=== PATIENT | female | born 1950 | race Caucasian/White ===

== ENCOUNTER 2021-04-26 14:00 | Emergency (ER) | payer MEDICARE, SELFPAY ==
--- NOTE | ~2021-04-26 | XR_ITS ---
EXAMINATION: XR foot RT min 3V DATE: 04/26/2021 15:00 INDICATION: Pain at the distal right metatarsals post fall TECHNIQUE: Dorsoplantar, two oblique and lateral views of the right foot were obtained. COMPARISON: None. FINDINGS: Minimally displaced fractures at the necks of the right second-fifth metatarsals with mild plantar/la teral impaction and angulation. No other fractures identified. Alignment is otherwise normal. 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 Diffuse soft tissue swelling about the fore and midfoot. IMPRESSION: 1. Nondisplaced mildly angulated extra articular fractures at the necks of the right second-fifth met atarsals. Reviewed, dictated and finalized at location B. S MANAGER IMPRESSION: 1. Nondisplaced mildly angulated extra articular fractures at the necks of the right second-fifth metatarsals.
[2021-04-26 14:42] VITALS: BP 153/54; PULSE 80; RESP 16; TEMP 37.1; O2SAT 97
[2021-04-26 14:47] VITALS: BP 153/54; PULSE 80; RESP 16; TEMP 37.1; O2SAT 97
--- NOTE | 2021-04-26 16:08 | ED.LOWEXIN ---
HPI - Extremity Injury (Lower) General Chief Complaint: Extremity Injury, Lower Stated Complaint: right foot pain Time Seen by Provider: 04/26/21 16:04 Source: patient, RN notes reviewed and old records reviewed Mode of arrival: ambulatory Limitations: no limitations History of Present Illness HPI Narrative: 71-year-old female who presents to [facility] with complaints of injury to her right foot 1 week ago where she slipped at home in her living room on a wet floor. Patient has acute swelling with some mild redness to dorsal distal aspect of her right foot, patient states that her discomfort is across the top of her distal right foot. Patient reports that she has been up walking on her foot with some increase discomfort with weight bearing. Patient states that she has been taking Tylenol for her discomfort. MD complaint: foot injury Onset (ago): week(s) (1) Related Data Home Medications Medication Instructions Recorded Confirmed Htn Med. 04/26/21 Water Pill 04/26/21 atorvastatin 04/26/21 Allergies Allergy/AdvReac Type Severity Reaction Status Date / Time No Known Allergies Allergy Verified 04/26/21 14:47 Review of Systems Review of Systems: CONSTITUTIONAL: Denies fever, chills, or sweats. EYES: Denies visual changes, redness, or discharge. ENT: Denies rhinorrhea, congestion, sore throat, or otalgia. CARDIOVASCULAR: Denies chest pain, palpitations, or edema. RESPIRATORY: Denies cough or dyspnea. GASTROINTESTINAL: Denies abdominal pain, nausea, vomiting, or diarrhea. GENITOURINARY: Denies dysuria or hematuria. SKIN: Denies rash or itching. MUSCULOSKELETAL: Denies back pain, positive for right distal foot joint pain, or myalgia. NEUROLOGIC: Denies headache, numbness, or weakness. PSYCHIATRIC: Denies anxiety or depression. All systems reviewed & are unremarkable except as noted in HPI and below PMFSH Past Medical History Medical History (Updated 04/26/21 @ 16:21 by Agnes Stratton NP) Elevated serum cholesterol Hypertension Social History Social History (Updated 04/26/21 @ 17:22 by Agnes Stratton NP) Smoking packs per day: 1 Smoking cigarettes per day: 20.0 Smoking status: Current every day smoker Tobacco type: cigarettes Alcohol intake: unknown Substance use: unknown Living arrangements: with family Gender identity (if verbalized by the patient): Female Exam Narrative: GENERAL: Well-appearing, well-nourished, obese and in no acute distress. HEAD: Normocephalic, atraumatic. EYES: PERRLA and EOMI. ENT: Nares clear, no rhinorrhea or epistaxis. Mucous membranes moist.TM's normal with good light reflex, throat normal with no lesions or exudates, NECK: Supple.no lymphadenopathy CHEST: Clear to auscultation. No respiratory distress.SAO2 97% on room air. HEART: Regular rate and rhythm. No murmur heard. Normal peripheral pulses. ABDOMEN: Soft, nontender, nondistended, normal active bowel sounds. EXTREMITIES: Normal range of motion. No edema with exception to right distal dorsal foot some redness to area on foot also. patient is able to put weight on right foot and has been walking on her foot all week, pedal pulse palpable, nail beds bar briskly to right foot. SKIN: Warm, dry, no rash. NEURO: No focal deficits. Alert and oriented x3. Course Course Level of Care: Express Care Visit Vital Signs Vital signs: Vital Signs Temperature 37.1 C 04/26/21 14:42 Pulse Rate 80 04/26/21 14:42 Respiratory Rate 16 04/26/21 14:42 Blood Pressure 153/54 H 04/26/21 14:42 Pulse Oximetry 97 04/26/21 14:42 Temperature 37.1 C 04/26/21 14:47 Pulse Rate 80 04/26/21 14:47 Respiratory Rate 16 04/26/21 14:47 Blood Pressure 153/54 H 04/26/21 14:47 Pulse Oximetry 97 04/26/21 14:47 MDM - Extremity Injury (Lower) Differential Diagnosis Differential diagnosis: Likely ankle sprain and strain and other (foot fracture, pain to right foot,) Medical Records Attestation:
== END 2021-04-26 16:22 | disposition home or self-care (01) ==
PROVIDERS: Emergency Provider Registered Nurse
DX: S92.324A Nondisplaced fracture of second metatarsal bone, right foot, initial encounter for closed fracture (principal); S92.334A Nondisplaced fracture of third metatarsal bone, right foot, initial encounter for closed fracture; S92.344A Nondisplaced fracture of fourth metatarsal bone, right foot, initial encounter for closed fracture; S92.354A Nondisplaced fracture of fifth metatarsal bone, right foot, initial encounter for closed fracture; W18.40XA Slipping, tripping and stumbling without falling, unspecified, initial encounter; I10 Essential (primary) hypertension; E78.00 Pure hypercholesterolemia, unspecified; F17.210 Nicotine dependence, cigarettes, uncomplicated
CPT/HCPCS: 73630; 99204; G0463

== ENCOUNTER 2021-08-12 19:11 | Emergency (ER) | payer MEDICARE, SELFPAY ==
--- NOTE | ~2021-08-12 | XR_ITS ---
EXAMINATION: XR wrist RT min 3V INDICATION: Right wrist pain, initial encounter TECHNIQUE: Four views of the right wrist are obtained. COMPARISON: None available FINDINGS: There is an acute, traumatic, comminuted fracture of the distal radius. There is an acute a vulsion fracture of the ulnar styloid. No additional acute osseous abnormality is identified. Wrist s oft tissue swelling is noted. IMPRESSION: 1. Comminuted fracture of the distal radius. 2. Ulnar styloid avulsion. Reviewed, dictated and finalized at location F.
--- NOTE | 2021-08-12 19:12 | ED.UPPEXIN ---
HPI - Extremity Injury (Upper) General Chief Complaint: Extremity Injury, Upper Stated Complaint: right hand/wrist pain Time Seen by Provider: 08/12/21 19:11 Source: patient Mode of arrival: ambulatory Limitations: no limitations History of Present Illness HPI narrative: Ms. Williamson is a 71-year-old female patient presenting to the clinic today with complaints of right hand/wrist pain after a fall a couple hours ago. She reports she landed on her right hand when she fell. She denies hitting her head or any loss of consciousness. Does have some swelling and bruising noted to the dorsal right hand and wrist. Is having pain with flexion and extension of the right wrist Related Data Home Medications Medication Instructions Recorded Confirmed atorvastatin 04/26/21 budesonide-formoterol [Symbicort] INHALATION 08/12/21 citalopram mg 08/12/21 diltiazem HCl [Tiadylt ER] PO 08/12/21 furosemide 08/12/21 hydrocodone-acetaminophen 08/12/21 lisinopril 08/12/21 methimazole 08/12/21 Allergies Allergy/AdvReac Type Severity Reaction Status Date / Time No Known Allergies Allergy Verified 04/26/21 14:47 Review of Systems Review of Systems: Pertinent positives per HPI. Patient denies any fever, chills, rash, headache, visual changes, dizziness, cough, runny nose, sore throat, shortness of breath, chest pain, palpitations, nausea, vomiting, diarrhea, constipation, abdominal pain, or any urinary issues. PMFSH Past Medical History Medical History Elevated serum cholesterol Hypertension Social History Social History Smoking packs per day: 1 Smoking cigarettes per day: 20.0 Smoking status: Current every day smoker Tobacco type: cigarettes Alcohol intake: unknown Substance use: unknown Gender identity (if verbalized by the patient): Female Comments At the time of my signature, I reviewed and agree with the nursing past medical, surgical, social, and family history. There is no relevant family history pertinent to the patient complaint. Exam Narrative: General: Well-developed, well nourished, in no apparent distress Head: Normocephalic, atraumatic. Cardio: Regular rate and rhythm, s1 and s2 normal, no murmur appreciated. Resp: Clear to auscultation bilaterally, no rhonchi, rales, wheezing or rubs. Musculoskeletal: No obvious deformity, swelling and bruising noted over the right dorsal wrist/hand, tender to palpation over the right dorsal wrist and distal forearm, pain with flexion, extension, ulnar deviation, and radial deviation of the wrist,, peripheral pulse strong, no cyanosis, normal gait and station Course Course Emergency Course: Portions of this record may have been created with voice recognition software. Level of Care: Express Care Visit Vital Signs Vital signs: Vital signs reviewed MDM - Extremity Injury (Upper) MDM Narrative Medical decision making narrative: At the time of visit patient is resting comfortably on the exam table. Patient reports falling onto her right hand and wrist. X-ray was obtained and shows a impacted fracture of the right radius and fracture of the distal ulna. Short arm OCL splint was applied. Sensation and circulation and motion within normal limits after application of splint. Supportive measures discussed with patient she voiced understanding however she is declining an arm sling. Benefits of wearing an arm sling was discussed with patient however she continues to decline to wear one. We will give her a referral to Dr. Mariscal orthopedist. Discharge instructions were given to the patient and she voiced understanding. Imaging Data Attestation: I personally reviewed and interpreted this imaging study as follows: My impression: Right distal radius comminuted fracture and right ulnar styloid fracture Radiologist's impression: Express [facility]
[2021-08-12 19:17] VITALS: BP 145/52; PULSE 82; RESP 16; TEMP 37.2; O2SAT 97
== END 2021-08-12 19:50 | disposition home or self-care (01) ==
PROVIDERS: Emergency Provider Nurse Practitioner Family
DX: S52.501A Unspecified fracture of the lower end of right radius, initial encounter for closed fracture (principal); S52.611A Displaced fracture of right ulna styloid process, initial encounter for closed fracture; W19.XXXA Unspecified fall, initial encounter; I10 Essential (primary) hypertension; F17.210 Nicotine dependence, cigarettes, uncomplicated
CPT/HCPCS: 29125; 73110; 99214; G0463